=== PATIENT | female | born 1995 | race Caucasian/White ===

== ENCOUNTER 2023-08-31 16:26 | Inpatient (IN) ==
[2023-08-31] MEDS: Lactated Ringers 1000 ml BAG 1,000 ML IV SCH (22:40)
[2023-08-31 23:08] LABS: Hematocrit 37.7 % (35-45); Hemoglobin 12.4 g/dL (11.5-14.3); Mean Corpuscular Hemoglobin 29.5 pg (27-33); Mean Corpuscular Hgb Conc 32.9 g/dL (31-36); Mean Corpuscular Volume 89.5 fL (80-97); Platelet Count 319 10^3/uL (150-450); Red Blood Count 4.21 10^6/uL (3.63-4.92); Red Cell Distribution Width 13.7 % (12-17)
[2023-08-31] MEDS: Ondansetron 4 mg VIAL 2 MG/ML 2 ml VIAL IV PRN (23:28)
[2023-08-31 23:31] LABS: Urine Benzodiazepine Screen None Detected (None Detect); Urine Cannabinoids Screen Presumptive Positive (None Detect); Urine Opiates Screen None Detected (None Detect)
[2023-09-01 00:21] LABS: ABS Lymphocytes 2.1 10^3/uL (1.0-4.8); ABS Monocytes 0.4 10^3/uL (0.0-0.9); ABS Neutrophils 22.5 10^3/uL (1.5-7.6); Lymphocyte % 8.4 %
[2023-09-01] MEDS ORDERED: Lidocaine 1% VIAL 10 MG/ML 30 ML VIAL INJ PRN (01:56)
[2023-09-01] MEDS ORDERED: Phenylephrine 40 mcg/mL 10mL (400mcg) SYRINGE IV PUSH PRN ×2 (02:35)
[2023-09-01] MEDS ORDERED: Sodium Citrate/Citric Acid LIQ 15 ML UDC PO PRN (02:35)
[2023-09-01] MEDS: Lactated Ringers 1000 ml BAG 1,000 ML IV SCH (03:34)
[2023-09-01] MEDS: OBEPIDURAL (200 ML) 0 ML EPIDURAL ONE (03:34)
[2023-09-01] MEDS: Lactated Ringers 1000 ml BAG 1,000 ML IV ONE (03:34)
[2023-09-01] MEDS: Lidocaine 1.5% EPI 1:200,000 30 ML SDV ONE (03:34)
[2023-09-01] MEDS: Ropivacaine 300 MG in NS 0.9% 250 ml 240 ML EPIDURAL SCH (03:37)
[2023-09-01 04:52] LABS: Urine Appearance Clear; Urine Bilirubin Negative (Negative); Urine Blood Negative (Negative); Urine Color Light-Yellow; Urine Glucose Negative (Negative); Urine Ketones 4+ (Negative); Urine Nitrite Negative (Negative); Urine Protein Trace (Negative); Urine Specific Gravity 1.024 (1.002-1.030); Urine Urobilinogen Negative (Negative)
[2023-09-01] MEDS: Penicillin G Potassium IV 5,000,000 UNITS in NS 0.9% 100 ml BAG 100 ML IVPB ONE (06:19)
[2023-09-01] MEDS: Penicillin G Potassium IV 3,000,000 UNITS in NS 0.9% 100 ml BAG 100 ML IVPB SCH (06:20)
[2023-09-01] MEDS ORDERED: Penicillin G Potassium IV 3,000,000 UNITS in NS 0.9% 100 ml BAG 100 ML IVPB SCH (10:00)
[2023-09-01] MEDS ORDERED: Oxytocin 10 UNITS/ML 1 ML VIAL IM PRN (15:59)
[2023-09-01] MEDS ORDERED: Glycerin ADULT 2.4 gm SUPP PR PRN (15:59)
[2023-09-01] MEDS ORDERED: Lactated Ringers 1000 ml BAG 1,000 ML IV SCH (16:00)
[2023-09-01] MEDS: Oxytocin in LR 0 MILLI.UNIT/0 ML BAG IV ONE (17:31)
[2023-09-01] MEDS: Dibucaine 1% OINT 28.35 GM TUBE PR PRN (18:32)
[2023-09-01] MEDS: Witch Hazel PAD JAR TOPICAL PRN (18:32)
[2023-09-02 06:39] LABS: Hematocrit 29.8 % (35-45); Hemoglobin 9.9 g/dL (11.5-14.3); Mean Corpuscular Hemoglobin 30.1 pg (27-33); Mean Corpuscular Hgb Conc 33.3 g/dL (31-36); Mean Corpuscular Volume 90.5 fL (80-97); Mean Platelet Volume 9.9 fL (7.5-11.2); Platelet Count 252 10^3/uL (150-450); Red Blood Count 3.29 10^6/uL (3.63-4.92); White Blood Count 23.9 10^3/uL (3.8-11.8)
[2023-09-02 09:14] LABS: ABS Basophils 0.1 10^3/uL (0.0-0.1); ABS Eosinophils 0.1 10^3/uL (0.0-0.5); ABS Lymphocytes 6.4 10^3/uL (1.0-4.8); ABS Monocytes 1.8 10^3/uL (0.0-0.9); ABS Neutrophils 15.5 10^3/uL (1.5-7.6); ABS Nucleated RBC 0.01 10^3/ul; Eosinophil % 0.4 %; Lymphocyte % 26.6 %
[2023-09-03 07:41] VITALS: BP 116/71
== END 2023-09-03 16:20 | disposition home or self-care (01) | DRG 560 ==
LOC: MCHOBOUT 16:26 → MCHOB 09-01 02:08
PROVIDERS: ATTEND Registered Nurse